=== PATIENT | female | born 1995 ===

== ENCOUNTER 2017-10-28 14:52 | Emergency (ER) | payer SELFPAY ==
[2017-10-28 15:11] VITALS: BP 121/75; PULSE 93; RESP 18; TEMP 98.5; O2SAT 99
--- NOTE | 2017-10-28 16:05 | C.PDOC ---
History Of Present Illness 22 yr old female presents to the ER s/p slip and fall yesterday. Patient states she was going down the stairs when she slipped, contrary to triage the patient reports injury to the right 2nd toe. Patient states at home she has been icing the toe and kam taped the toe. Denies other injuries, leg pain, weakness or numbness. Time Seen by Provider: 10/28/17 15:12 Chief Complaint (Nursing): Lower Extremity Problem/Injury History Per: Patient History/Exam Limitations: no limitations Onset/Duration Of Symptoms: Days (1) Past Medical History Reviewed: Historical Data, Nursing Documentation, Vital Signs Vital Signs: Last Vital Signs Temp 98.5 F 10/28/17 15:07 Pulse 93 H 10/28/17 15:07 Resp 18 10/28/17 15:07 BP 121/75 10/28/17 15:07 Pulse Ox 99 10/28/17 16:40 Family History: States: No Known Family Hx - Social History Hx Alcohol Use: No Hx Substance Use: No Review Of Systems Except As Marked, All Systems Reviewed And Found Negative. Musculoskeletal: Positive for: Other ((+) right 2nd toe injury). Negative for: Leg Pain Neurological: Negative for: Weakness, Numbness Physical Exam - Physical Exam Appears: Non-toxic, No Acute Distress Skin: Warm, Dry, No Rash Head: Atraumatic, Normacephalic Oral Mucosa: Moist Extremity: Normal ROM, No Calf Tenderness, Other ((+) swelling and tenderness to the right proximal 2nd toe) Pulses: Left Dorsalis Pedis: Normal, Right Dorsalis Pedis: Normal Neurological/Psych: Oriented x3, Normal Speech, Normal Motor, Normal Sensation, Normal Reflexes Gait: Steady ED Course And Treatment O2 Sat by Pulse Oximetry: 99 (RA) Pulse Ox Interpretation: Normal - Other Rad X-Ray - Right 2nd Toe X-Ray: Viewed By Me, Read By Radiologist Interpretation: Negative for fracture or dislocation. Unremarkable. Medical Decision Making Medical Decision Making: PLAN: * X-Ray - Right 2nd Toe * Motrin PO Disposition - Disposition Referrals: Podiatry Clinic [Outside] Kayley Trivedi DPM [Staff Provider] - Disposition: HOME/ ROUTINE Disposition Time: 16:07 Condition: GOOD Additional Instructions: Follow up with the medical doctor/clinic within 1-2 days. Return if worsened. Prescriptions: Acetaminophen [Tylenol] 325 mg PO Q6 PRN #30 tab PRN Reason: Pain, Mild (1-3) Ibuprofen [Motrin] 1 tab PO TID PRN #30 tab PRN Reason: Pain Instructions: Foot Contusion (ED) Forms: [facility] (Mongolian), School Excuse - Clinical Impression Clinical Impression: Toe contusion - PA / MULTILITH OPERATOR / Resident Statement MD/DO has reviewed & agrees with the documentation as recorded. - Scribe Statement The provider has reviewed the documentation as recorded by the Scribe Indy Loyola All medical record entries made by the Heraclioibatif were at my direction and personally dictated by me. I have reviewed the chart and agree that the record accurately reflects my personal performance of the history, physical exam, medical decision making, and the department course for this patient. I have also personally directed, reviewed, and agree with the discharge instructions and disposition.
== END 2017-10-28 16:48 | disposition home or self-care (01) ==
LOC: C.ER 14:52
DX: S90.121A Contusion of right lesser toe(s) without damage to nail, initial encounter (principal); W10.8XXA Fall (on) (from) other stairs and steps, initial encounter; Y92.89 Other specified places as the place of occurrence of the external cause

== ENCOUNTER 2018-02-25 11:47 | Emergency (ER) | payer SELFPAY ==
[2018-02-25 12:25] VITALS: RESP 18; TEMP 98.7; O2SAT 100
--- NOTE | 2018-02-25 14:36 | RAD ---
PROCEDURE: Left Foot Radiographs. HISTORY: foot pain, medial foot COMPARISON: None. FINDINGS: BONES: No fracture identified. JOINTS: No dislocation seen. Bony articulations appear maintained. SOFT TISSUES: Unremarkable OTHER FINDINGS: None. IMPRESSION: No fracture or dislocation identified.
[2018-02-25 14:40] VITALS: BP 117/69; PULSE 54
--- NOTE | 2018-02-25 14:53 | C.PDOC ---
History Of Present Illness 22 y/o female presents to the ER complaining of atraumatic left foot pain which has been present for the past 2 days. Patient reports that she is not taking any medications for the pain. Patient reports that she may have banged her foot. Otherwise, patient denies having trauma, using new shoes, previous hx of foot pain, fever, and chills. Time Seen by Provider: 02/25/18 12:30 Chief Complaint (Nursing): Lower Extremity Problem/Injury History Per: Patient History/Exam Limitations: no limitations Onset/Duration Of Symptoms: Days Current Symptoms Are (Timing): Still Present Severity: Moderate Past Medical History Reviewed: Historical Data, Nursing Documentation, Vital Signs Vital Signs: Last Vital Signs Temp 98.7 F 02/25/18 12:07 Pulse 54 L 02/25/18 14:38 Resp 18 02/25/18 14:38 BP 117/69 02/25/18 14:38 Pulse Ox 100 02/25/18 15:02 - Medical History PMH: No Chronic Diseases Surgical History: No Surg Hx Family History: States: No Known Family Hx - Social History Hx Alcohol Use: No Hx Substance Use: No - Immunization History Hx Tetanus Toxoid Vaccination: No Hx Influenza Vaccination: No Hx Pneumococcal Vaccination: No Review Of Systems Except As Marked, All Systems Reviewed And Found Negative. Musculoskeletal: Positive for: Foot Pain Physical Exam - Physical Exam Appears: Non-toxic, No Acute Distress Skin: Normal Color, Warm, Dry Head: Atraumatic, Normacephalic Eye(s): bilateral: Normal Inspection Nose: Normal Oral Mucosa: Moist Neck: Supple Chest: Symmetrical Cardiovascular: Rhythm Regular Respiratory: Normal Breath Sounds, No Rales, No Rhonchi, No Wheezing Extremity: Normal ROM, Tenderness (tenderness to medial aspect of left foot), No Swelling Pulses: Left Dorsalis Pedis: Normal, Right Dorsalis Pedis: Normal Neurological/Psych: Oriented x3, Normal Speech, Normal Motor, Normal Sensation ED Course And Treatment O2 Sat by Pulse Oximetry: 100 (RA) Pulse Ox Interpretation: Normal - Other Rad X-Ray- Left Foot X-Ray: Viewed By Me, Read By Radiologist Interpretation: PROCEDURE: Left Foot Radiographs. HISTORY: foot pain, medial foot. COMPARISON: None. FINDINGS: BONES: No fracture identified. JOINTS: No dislocation seen. Bony articulations appear maintained. SOFT TISSUES: Unremarkable. OTHER FINDINGS: None. IMPRESSION: No fracture or dislocation identified. Medical Decision Making Medical Decision Making: Assessment: Foot Pain Plan: --X-Ray- Left Foot Updates: X-Ray - Left Foot shows no fx. Patient has been discharged. Patient has been instructed to follow up with podiatry in 2 days and take Advil or Aleve as needed for pain. Patient has also been instructed to return to ER if symptoms worsen. Disposition - Disposition Referrals: Podiatry Clinic [Outside] Disposition: HOME/ ROUTINE Disposition Time: 14:30 Condition: STABLE Additional Instructions: follow up with podiatry clinic in 2 days call to make an appointment take advil or aleve as needed for pain rest, ice, elevate return to ER if symptoms worsens or progress Instructions: Metatarsalgia Forms: General Discharge Instructions, [facility] (Upper Sorbian) - Clinical Impression Clinical Impression: Foot pain - Scribe Statement The provider has reviewed the documentation as recorded by the Ebenezer Sagastume Provider Attestation: All medical record entries made by the Heraclioibatif were at my direction and personally dictated by me. I have reviewed the chart and agree that the record accurately reflects my personal performance of the history, physical exam, medical decision making, and the department course for this patient. I have also personally directed, reviewed, and agree with the discharge instructions and disposition.
== END 2018-02-25 14:40 | disposition home or self-care (01) ==
LOC: C.ER 11:47
DX: M79.672 Pain in left foot (principal)

== ENCOUNTER 2018-05-13 07:16 | Emergency (ER) | payer SELFPAY ==
[2018-05-13 07:41] VITALS: TEMP 98.1
[2018-05-13 08:33] LABS: HCG,QUALITATIVE URINE NEGATIVE (NEGATIVE)
[2018-05-13] MEDS ORDERED: cefTRIAXone IV 1 gm in Dextros 50 ML IV STA (08:37)
[2018-05-13 08:41] LABS: URINE BILIRUBIN NEGATIVE (NEGATIVE); URINE BLOOD 3+ (NEGATIVE); URINE CLARITY Clear (Clear); URINE COLOR Straw (YELLOW); URINE GLUCOSE (UA) NORMAL (Normal); URINE LEUKOCYTE ESTERASE TRACE Leu/uL (Negative); URINE PROTEIN NEGATIVE (NEGATIVE); URINE UROBILINOGEN NORMAL mg/dL (0.2-1.0)
--- NOTE | 2018-05-13 08:41 | C.PDOC ---
History Of Present Illness 22-year-old female presents to the emergency department with complaints of vaginal itching and discharge since yesterday. Patient notes symptoms are similar to prior yeast infections. She admits to unprotected sex one week ago. Patient denies nausea/vomiting, fever/chills, chest pain, shortness of breath, dysuria/hematuria. Time Seen by Provider: 05/13/18 07:46 Chief Complaint (Nursing): Female Genitourinary History Per: Patient History/Exam Limitations: no limitations Onset/Duration Of Symptoms: Days Current Symptoms Are (Timing): Still Present Severity: Moderate Past Medical History Reviewed: Historical Data, Nursing Documentation, Vital Signs Vital Signs: Last Vital Signs Temp 98.1 F 05/13/18 09:47 Pulse 71 05/13/18 09:47 Resp 14 05/13/18 09:47 BP 119/73 05/13/18 09:47 Pulse Ox 100 05/13/18 13:21 - Medical History PMH: No Chronic Diseases Family History: States: No Known Family Hx - Social History Hx Alcohol Use: No Hx Substance Use: No - Immunization History Hx Tetanus Toxoid Vaccination: No Hx Influenza Vaccination: Yes Hx Pneumococcal Vaccination: No Review Of Systems Constitutional: Negative for: Fever, Chills Respiratory: Negative for: Cough, Shortness of Breath Gastrointestinal: Negative for: Nausea, Vomiting, Abdominal Pain Genitourinary: Positive for: Vaginal Discharge (+itching). Negative for: Dysuria, Hematuria, Vaginal Bleeding Musculoskeletal: Negative for: Back Pain Skin: Negative for: Rash Physical Exam - Physical Exam Appears: Well, Non-toxic, No Acute Distress Skin: Normal Color, Warm, Dry, No Rash Head: Normacephalic Eye(s): bilateral: Normal Inspection Oral Mucosa: Moist Cardiovascular: Rhythm Regular Respiratory: Normal Breath Sounds, No Rales, No Rhonchi, No Wheezing Gastrointestinal/Abdominal: Normal Exam, Bowel Sounds, Soft, No Tenderness Pelvic: Normal External Exam, Normal Bimanual Exam, No Cervical Motion Tenderness, No Adnexal Tenderness, Other (Mild blood, no obvious discharge. No CMT. No adenexal tenderness. No lesions ) Extremity: Normal ROM, No Deformity, No Swelling Neurological/Psych: Oriented x3 ED Course And Treatment O2 Sat by Pulse Oximetry: 100 (RA) Pulse Ox Interpretation: Normal Progress Note: UA, Upreg ordered and reviewed. Patient given IM Rocephin, PO Azithromycin, PO Diflucan in ED. Rx for Diflucan given, to be used in 72 hrs if symptoms persist. Patient instructed to follow up with maxillofacial surgeon within 1 week. She understands she should return to ED if symptoms worsen. Disposition Counseled Patient/Family Regarding: Diagnosis, Need For Followup, Rx Given - Disposition [facility]errals: [facility] [Outside] [facility] [Outside] Disposition: HOME/ ROUTINE Disposition Time: 09:00 Condition: STABLE Additional Instructions: FOLLOW UP WITH MECHANICAL TECH WITHIN 1 WEEK USE MEDICATION DIRECTED RETURN TO ER IF SYMPTOMS WORSEN Prescriptions: Fluconazole [Diflucan] 150 mg PO DAILY #1 tab Instructions: Vaginal Discharge in Adults Forms: [facility] (Ukrainian) Print Language: MALAY - Clinical Impression Clinical Impression: Vaginal discharge - Scribe Statement The provider has reviewed the documentation as recorded by the Scribe (Sg Lopes) All medical record entries made by the Scribe were at my direction and personally dictated by me. I have reviewed the chart and agree that the record accurately reflects my personal performance of the history, physical exam, medical decision making, and the department course for this patient. I have also personally directed, reviewed, and agree with the discharge instructions and disposition.
[2018-05-13] MEDS ORDERED: cefTRIAXone IV 1 gm in Dextros 50 ML IVPB ONE (09:06)
[2018-05-13 09:17] LABS: SQUAMOUS EPITHIAL 1 /hpf (0-5); URINE BACTERIA RARE (<OCC)
[2018-05-13 09:49] VITALS: BP 119/73; PULSE 71; RESP 14
[2018-05-13 13:21] VITALS: O2SAT 100
== END 2018-05-13 09:48 | disposition home or self-care (01) ==
LOC: C.ER 07:16
DX: N89.8 Other specified noninflammatory disorders of vagina (principal)
CPT/HCPCS: 81001; 84703; 96374; 99285; J0696